=== PATIENT | male | born 1995 | race Two or more races ===

== ENCOUNTER 2024-02-09 18:16 | Emergency (ER) | payer MEDICAID ==
[~2024-02-09] VITALS: Ht 170.2 cm; Wt 108.4 kg
[2024-02-09 18:31] VITALS: BP 142/97; PULSE 87; RESP 18; TEMP 98.4
[2024-02-09 19:12] LABS: Urine Bacteria None Seen /hpf (None Seen)
[2024-02-09 19:22] LABS: Urine Blood Negative /uL (Negative); Urine Clarity Clear (Clear); Urine Color Yellow (Yellow); Urine Mucus FEW (None Seen); Urine Protein, UAD TRACE (Negative); Urine Specific Gravity 1.024 (1.001-1.035); Urine Urobilinogen 2 mg/dL (Negative); Urine WBC 25 /hpf (0 - 3)
[2024-02-09] MEDS ORDERED: LEVO500T91 PO (20:57)
[2024-02-09 21:17] VITALS: O2SAT 96
== END 2024-02-09 21:30 | disposition home or self-care (01) ==
LOC: ER 18:16
DX: N45.1 Epididymitis (principal)
CPT/HCPCS: 76870; 81001